=== PATIENT | male | born 1985 | race Caucasian/White ===

== ENCOUNTER 2021-10-05 12:16 | Emergency (ER) | payer BC ==
[~2021-10-05] VITALS: Ht 177.8 cm; Wt 81.6 kg
--- NOTE | 2021-10-05 13:03 | NUR ---
Patient discharged to home in stable condition. Written and verbal after care instructions given. Patient verbalizes understanding of instructions. Stressed follow up or return to ER for worsening s/s.
[2021-10-05 13:15] VITALS: BP 125/79
== END 2021-10-05 13:25 | disposition home or self-care (01) ==
LOC: ER 12:16
DX: S61.011A Laceration without foreign body of right thumb without damage to nail, initial encounter (principal); X58.XXXA Exposure to other specified factors, initial encounter; Y92.89 Other specified places as the place of occurrence of the external cause; Z88.0 Allergy status to penicillin
CPT/HCPCS: A4663